=== PATIENT | male | born 1935 | race Caucasian/White ===

== ENCOUNTER → 2016-09-09 11:01 | Outpatient (CLI) | payer MEDICARE ==
[2013-10-28 14:44] VITALS: BMI 30.4
[~2016-09-09 11:01] MED LIST: BAYER CHEWABLE81 MG PO; CORDARONE200 MG PO; K-DUR20 MEQ PO; LASIX20 MG PO; LASIX40 MG PO; LIPITOR80 MG PO; LISINOPRIL10 MG PO; LOPRESSOR25 MG PO; MULTI-DAY VITAM1 TAB PO; NORCO 5/325 TAB1 TA1 PO; PLAVIX75 MG PO; XARELTO15 MG PO; ZETIA10 MG PO
== END | disposition home or self-care (01) ==
LOC: D.US 11:00
DX: R09.89 Other specified symptoms and signs involving the circulatory and respiratory systems (principal); M79.604 Pain in right leg; M79.605 Pain in left leg

== ENCOUNTER 2017-04-19 21:00 | Emergency (ER) | payer MEDICARE ==
[2013-10-28 14:44] VITALS: BMI 30.4
[2017-04-19 22:45] LABS: BASOPHILS 0.2 % (0-2); EOSINOPHILS 5.3 % (0-7); HEMATOCRIT 39.9 % (42.0-54.0); HEMOGLOBIN 13.5 g/dL (13.5-17.5); IMMATURE GRANULOCYTES 0.2 % (0-5); LYMPHOCYTES 34.2 % (15-50); MCH 32.8 pg (26.0-34.0); MCHC 33.8 g/dL (31.0-37.0); MCV 97.1 fL (80.0-100.0); MEAN PLATELET VOLUME 9.7 fL (7.4-10.4); NEUTROPHILS 53.1 % (40-80); RBC 4.11 10x6/uL (4.20-6.10); RDW 13.3 % (11.5-14.5); WBC 5.7 10x3/uL (4.8-10.8)
[2017-04-19 22:46] LABS: PLATELET COUNT 178 10x3/uL (130-400)
[2017-04-19 22:52] LABS: ANION GAP 13.9 mmol/L (8-16); BILIRUBIN - TOTAL 0.39 mg/dL (0.2-1.3); CALCIUM 8.7 mg/dL (8.5-10.1); CARBON DIOXIDE 26.6 mmol/L (21.0-32.0); CREATININE - SERUM 1.2 mg/dL (0.6-1.3); MAGNESIUM - SERUM 2.1 mg/dL (1.8-2.4); POTASSIUM - SERUM 3.5 mmol/L (3.5-5.1); PROTEIN - SERUM 6.6 g/dL (6.4-8.2)
== END 2017-04-20 01:20 | disposition home or self-care (01) ==
LOC: D.ER 21:00
PROVIDERS: Family Medicine
DX: T44.7X1A Poisoning by beta-adrenoreceptor antagonists, accidental (unintentional), initial encounter (principal); Y92.029 Unspecified place in mobile home as the place of occurrence of the external cause; I10 Essential (primary) hypertension; R00.1 Bradycardia, unspecified; I44.7 Left bundle-branch block, unspecified

== ENCOUNTER 2018-05-24 13:49 | Observation (INO) | payer MEDICARE ==
[~2018-05-24] VITALS: Ht 175.3 cm; Wt 90.9 kg
--- NOTE | ~2018-05-24 | HEMODYNAMI ---
PATIENT:DEACON AGUILAR MEDICAL RECORD: [id number] : 39 [address] [id number] ADMISSION DATE: 05/24/18 Generatedon:05/25/201815:41 Patient name: DEACON AGUILAR Patient #: [id number] SSN: : 1935 Date of study: 05/25/2018 Page: Of Hemodynamic Procedure Report Patient Data Patient Demographics Procedure consent was obtained First Name: DEACON Gender: Male Last Name: JEFF : 1935 [facility] Initial: JESS Age: 82 year(s) Patient #: [id number] Race: Unknown Additional ID: [id number] Contact details Address: [address] [place] [address] State: [place] City: [place] Zip code: [address] Past Medical History Allergies: No known allergies Admission Admission Data Admission Date: 05/24/2018 Admission Time: 15:01 Room #: D2129 Lab Results Lab Result Date: 05/25/2018 Lab Result Time: 5:00 Biochemistry Name Units Result Min Max BUN mg/dl 9 --(*---)-- 7 18 Creatinine mg/dl 1 --(--*-)-- 0.6 1.3 CBC Name Units Result Min Max Hematocrit % 42.2 --(*---)-- 42 54 Hemoglobin g/dl 14.7 --(-*--)-- 13.5 17.5 Procedure Procedure Types Cath Procedure Diagnostic Procedure LHC LHC w/Coronaries w/Grafts Sedation Charges Moderate Sedation up to 15 minutes Procedure Description Procedure Date Procedure Date: 05/25/2018 Procedure Start Time: 15:26 Procedure End Time: 15:40 Procedure Staff Name Function Christoph Schofield MD Performing Physician Son Simpson RT Monitor Solange Mc RT Scrub Douglas Peguero RN Nurse Jayson Loyd RN Thermal Cutting Machine Operator Procedure Data Cath Procedure Fluoroscopy Diagnostic fluoroscopy Total fluoroscopy Time: 3.2 time: 3.2 min min Diagnostic fluoroscopy Total fluoroscopy dose: 668 dose: 668 mGy mGy Contrast Material Contrast Material Type Amount (ml) Isovue 300 73 Entry Location Entry Primary Successful Side Size Upsize Upsize Entry Closure Succes sful Closure Location (Fr) 1 (Fr) 2 (Fr) Remarks Device Remarks Femoral Right 5 Fr Vascade artery Closure System Estimated blood loss: 5 ml Diagnostic catheters Device Type Used For End Catheter Placement MULTIPACK Pigtail 5 Fr Procedure catheter MULTIPACK JL 4.0 5Fr Procedure catheter MULTIPACK 3DRC 5Fr Procedure catheter DIAGNOSTIC AR2 MOD 5 Fr Procedure catheter ([id number]) Procedure Complications No complications Procedure Medications Medication Administration Route Dosage 0.9% NaCl I.V. 100 ml/hr Oxygen etCO2 Nasal cannula 2 l/min Heparin Flush Bag added to field 2 bags (1000units/500ml NS) Lidocaine 2% added to field 20 Versed I.V. 2 mg Fentanyl I.V. 100 mcg Versed I.V. 1 mg Fentanyl I.V. 100 mcg Hemodynamics Rest HGB: 14.7 (g/dl) Heart Rate: 56 (bpm) Snapshots Pre Cath Intra NCS Post Cath Vital Signs Time Heart Resp SPO2 etCO2 NIBP (mmHg) Rhythm Pain Sedation Rate (ipm) (%) (mmHg) Status Level (bpm) 15:09:08 60 16 100 35.1 161/72(133) NSR 0 (11) 10(A) , No pain 15:13:28 66 12 96 32.1 131/77(106) NSR 0 (11) 10(A) , No pain 15:17:42 52 12 98 35.8 135/66(107) NSR 0 (11) 10(A) , No pain 15:21:54 64 13 98 35.8 131/71(111) NSR 0 (11) 10(A) , No pain 15:26:04 68 15 98 26.1 132/74(93) NSR 0 (11) 9(A) , No pain 15:30:18 54 12 97 29.1 123/60(99) NSR 0 (11) 9(A) , No pain 15:34:28 65 11 98 36.6 142/65(112) NSR 0 (11) 10(A) , No pain 15:38:42 66 11 98 35.8 140/75(121) NSR 0 (11) 10(A) , No pain Medications Time Medication Route Dose Verified Delivered Reason Notes Eff ectiveness by by 15:07:14 0.9% NaCl I.V. 100 Douglas Douglas Per ml/hr Suhdir Peguero physician RN RN 15:07:25 Oxygen etCO2 2 Douglas Douglas Per Nasal l/min Sudhir Peguero physician cannula RN RN 15:07:36 Heparin Flush added 2 Douglas Douglas used for Bag to bags Lorigan Lorigan procedure (1000units/500ml field RN RN NS) 15:07:48 Lidocaine 2% added 20ml Douglas Douglas for local to vial Lorigan Lorigan anesthetic field RN RN 15:20:30 Versed I.V. 2 mg Douglas Douglas for Lorigan Lorigan sedation RN RN 15:20:38 Fentanyl I.V. 100 Douglas Douglas for mcg Lorigan Lorigan sedation RN RN 15:27:46 Versed I.V. 1 mg Douglas Douglas for Lorigan Lorigan sedation RN RN 15:27:53 Fentanyl I.V. 100 Douglas Douglas for mcg Lorigan Lorigan sedation RN health record technician Log Time Note 14:52:53 Jayson Loyd RN sent for patient. Start room use. 14:52:54 Time tracking: Regular hours (M-F 7:00 - 5:00) 14:52:58 Plan of Care:Hemodynamics will remain stable., Cardiac rhythm will remain stable., Comfort level will be maintained., Respiratory function will remain adequate., Patient/ family verbilizes understanding of procedure., Procedure tolerated without complication., Recovers from procedure without complications.. 14:53:03 Patient received from Med II to [facility] 2 Alert and oriented. Tansferred to table in Supine position. 14:53:04 Warm blankets applied, and claudia hugger turned on for patient comfort. 14:53:05 Correct patient and procedure confirmed by team. 14:53:07 Signed procedure consent form obtained from patient. 14:53:10 ECG and BP/O2 sat monitors applied to patient. 15:07:14 0.9% NaCl 100 ml/hr I.V. was administered by Douglas Peguero RN; Per physician; 15:07:25 Oxygen 2 l/min etCO2 Nasal cannula was administered by Douglas Peguero RN; Per physician; 15:07:36 Heparin Flush Bag (1000units/500ml NS) 2 bags added to field was administered by Douglas Peguero RN; used for procedure; 15:07:48 Lidocaine 2% 20ml vial added to field was administered by Douglas Peguero RN; for local anesthetic; 15:07:54 Vital chart was started 15:09:18 Baseline sample Acquired. 15:09:22 Rhythm: sinus rhythm 15:10:07 Full Disclosure recording started 15:10:30 H&P Date Dictated: 05/24/2018 Within 30 days and on chart.. 15:10:32 Pre-procedure instructions explained to patient. 15:10:32 Pre-op teaching completed and patient verbalized understanding. 15:10:42 Family in waiting room. 15:10:52 Patient NPO since Midnight. 15:11:00 Patient allergic to No known allergies 15:11:02 Is the patient allergic to Iodine/contrast media? No. 15:11:06 Is patient on blood thinner?Yes 15:11:09 Patient diabetic? No. 15:11:11 Previous problem with sedation/anesthesia? No ? 15:11:15 Snore? No 15:11:15 Sleep apnea? No 15:11:16 Deviated septum? No 15:11:16 Opens mouth fully? Yes 15:11:17 Sticks out tongue? Yes 15:11:19 Airway obstruction? No ? 15:11:23 Dentures? Yes in tight 15:11:27 Pre procedure: right dorsailis pedis pulse 2+ Normal; easily identifiable; not easily obliterated 15:11:28 Patient pain scale 0/10 ?. 15:11:33 IV patent on arrival in right forearm with 0.9% NaCl at [facility]. 15:12:17 Lab Result : BUN 9 mg/dl 15:12:17 Lab Result : Creatinine 1 mg/dl 15:12:17 Lab Result : Hemoglobin 14.7 g/dl 15:12:17 Lab Result : Hematocrit 42.2 % 15:12:19 Lab results completed and on chart. 15:12:23 Right groin area was prepped with chlora-prep and draped in sterile fashion 15:12:24 Alarms reviewed by R. N. 15:12:24 Sharps counted by scrub and verified by R.N. 15:12:27 Use device set Femoral Dx 15:12:27 ACIST Syringe (62367) opened to sterile field. 15:12:28 Bag Decanter (2002S) opened to sterile field. 15:12:28 Medline Cath Pack ([id number]) opened to sterile field. 15:12:29 ACIST Hand Control (58081) opened to sterile field. 15:12:30 ACIST Manifold (57063) opened to sterile field. 15:12:30 Tegaderm 4 x 4 (1626W) opened to sterile field. 15:12:33 DIAGNOSTIC WIRE .035 260cm J wire (859171) opened to sterile field. 15:12:34 DIAGNOSTIC Multipack 5Fr catheter set ([id number]) opened to sterile field. 15:12:40 SHEATH 5FR Marianna (HRA679) opened to sterile field. 15:19:30 Zero performed for pressure channel P1 15::47 Physician arrived 15::48 --------ALL STOP TIME OUT------ 15::48 Final Timeout: patient, procedure, and site verified with staff and physician. All members of the team are in agreement. 15:19:50 Right groin site verified by team. 15:19:53 Physical assessment completed. ASA score P 2 - A patient with mild systemic disease as per Christoph Schofield MD. 15:19:56 Sedation plan: IV Moderate Sedation Medication:Versed, Fentanyl 15:20:30 Versed 2 mg I.V. was administered by Douglas Peguero RN; for sedation; 15::38 Fentanyl 100 mcg I.V. was administered by Douglas Peguero RN; for sedation; 15::38 Procedure started. 15:26:40 Local anesthetic to right femoral artery with Lidocaine 2% by Christoph Schofield MD.INITIAL ACCESS ONLY 15::47 A 5 Fr sheath was inserted into the Right Femoral artery 15::34 A MULTIPACK Pigtail 5 Fr catheter was advanced over the wire and used for Procedure. 15:27:46 Versed 1 mg I.V. was administered by Douglas Peguero RN; for sedation; 15::49 LV gram done using EDOUARD 15::53 Fentanyl 100 mcg I.V. was administered by Douglas Peguero RN; for sedation; 15::18 Injector settings: Ml/sec: 10, Volume: 20, 15:28:19 LV hemodynamics recorded. 15:28:24 EF : 55 % 15:28:26 Catheter exchanged over wire. 15:28:30 A MULTIPACK JL 4.0 5Fr catheter was advanced over the wire and used for Procedure. 15:29:00 LCA angiography performed. 15:29:31 Catheter exchanged over wire. 15:29:37 A MULTIPACK 3DRC 5Fr catheter was advanced over the wire and used for Procedure. 15:30:33 SALOMON to LAD angiography performed. 15:30:56 RCA angiography performed. 15:31:49 Catheter exchanged over wire. 15:31:53 A DIAGNOSTIC AR2 MOD 5 Fr catheter ([id number]) was advanced over the wire and used for Procedure. 15:32:33 SVG to Diag angiography performed. 15:32:59 SVG to Diag, Ramus, CX angiography performed. 15:33:58 Catheter removed. 15:35:27 VASCADE 5Fr ([id number]) opened to sterile field. 15:36:39 Sheath removed intact; hemostasis achieved with Vascade Closure System to the Right Femoral artery. 15:36:41 Procedure ended.(Physican Out) 15:37:06 Fluoroscopy time 03.20 minutes. 15:37:11 Fluoroscopy dose: 668 mGy 15:37:11 Flurop Dose total: 668 15:37:17 Contrast amount:Isovue 300 73ml. 15:37:18 Sharps counted by scrub and verified by R.N. 15:37:19 Insertion/operative site no bleeding no hematoma. 15:37:22 Post-op/insertion site Right Femoral artery dressed using a 4 x 4 and Tegaderm. 15:37:26 Post right femoral artery:stable, soft, clean and dry 15:37:27 Post Procedure Pulses reassessed and unchanged 15:37:30 Post-procedure physical assessment completed. ASA score P 2 - A patient with mild systemic disease as per Christoph Schofield MD. 15:37:31 Post procedure rhythm: unchanged. 15:37:34 Estimated blood loss: 5 ml 15:37:40 Post procedure instruction explained to patient.Patient verbalizes understanding. 15:37:40 Patient needs reinforcement of post procedure teaching. 15:38:14 Procedure type changed to Cath procedure, Diagnostic procedure, LHC, LHC w/Coronaries w/Grafts, Sedation Charges, Moderate Sedation up to 15 minutes 15:39:55 Procedure and supply charges have been captured, reviewed, submitted and are correct. 15:39:57 Procedure Complication : No complications 15:39:59 Vital chart was stopped 15:39:59 See physician's report for complete and final results. 15:40:09 Report given to PCU. 15:40:12 Patient transfered to PCU with Stretcher. 15:40:13 Procedure ended. 15:40:13 Full Disclosure recording stopped 15:40:17 End room use (Document Last) Device Usage Item Name Manufacture Quantity Catalog Number Hospital Part Current Min imal Lot# / Charge Number Stock Stock Serial# Code ACIST Syringe Acist 1 97019 887359 262710 723621 20 (04171) Potential Systems Modern Boutique Bag Decanter Microtek 1 2001S 274982 96229 373970 5 () Medical Inc. Medline Cath Medline 1 [id number] 340608 09556 517303 5 Pack ([id number]) ACIST Hand Acist 1 95515 206998 374709 907237 5 Control Medical (55864) Systems Inc ACIST Acist 1 04681 831383 534973 690461 5 Manifold Medical (55362) Systems Inc Tegaderm 4 x 3M 1 1626W 120628 043839 187426 5 4 (1626W) DIAGNOSTIC St Jake 1 778257 876054 452366 238891 30 WIRE .035 260cm J wire (612760) DIAGNOSTIC Cardinal 1 [id number] 306545 78975 223746 30 Multipack 5Fr Health catheter set (GN4816) SHEATH 5FR Terumo 1 NNY561 161537 460182 257527 40 Marianna (ZNX488) MULTIPACK Cardinal 1 122125 5 Pigtail 5 Fr Health catheter MULTIPACK JL Cardinal 1 294118 5 4.0 5Fr Health catheter MULTIPACK Cardinal 1 186387 5 3DRC 5Fr Health catheter DIAGNOSTIC Cardinal 1 [id number] 187540 337548 698714 20 AR2 MOD 5 Fr Health catheter ([id number]) VASCADE 5Fr Cardiva 1 [id number] 050498 60122 215186 10 ([id number]) Potential, Inc. Signature Audit Leland Stage Time Signature Unsigned Intra-Procedure 05/25/2018 Son Simpson 3:41:39 PM RT(R) Signatures Monitor : Son Simpson RT Signature : Date : Time : [place] [id number] [place] [address]
--- NOTE | ~2018-05-24 | MORECARE ---
CASE MANAGEMENT DISCHARGE SUMMARY PATIENT: DEACON AGUILAR UNIT: [id number] ADM DATE: 05/24/18 AGE: 82 : 37 SEX: M ROOM/BED: D.1107 AUTHOR: ASHISH HERNANDES PHYSICIAN: REFERRING PHYSICIAN: ORTIZ BYERS MD DATE OF SERVICE: 05/25/18 Discharge Plan Patient Name: DEACON AGUILAR Facility[facility]:[place] : 1935 Planned Disposition: Home Anticipated Discharge Date: 06/21/18 Discharge Date: Expected LOS: 28 Initial Reviewer: [email or web address] Initial Review Date: 05/25/2018 Generated: 05/25/18 6:09 pm Coverage Notice Reviewer: [email or web address] Anjana Lynch Notice Issued Date-Time: 05/25/2018 14:35 Notice Type: Medicare Outpatient Observation Notice Notice Delivered To: Patient Relationship to Patient: Self Compression Molding Machine Setter Name: Delivery Method: HAND - Hand Delivered Melodie Days: Prior Verbal Notification: Recipient Understood Notice: Recipient Signature: Med Rec Note Co-signed by Attending: Coverage Notice Comment: I ATTEMPTED TO DELIVER THE RODRIGUEZ TO THE PATIENT. HE DID NOT WANT TO LISTEN, HE SAID IT DIDN'T MATTER BECAUSE HE WAS GETTING READY TO WALK OUT OF THIS PLACE. HE HAS HIS TELEMETRY OFF, PULLED HIS IV OUT. HE STATED THAT HE IS NOT GETTING THE SERVICES THAT HE IS HERE IN NEED OF. I FOUND TANIA TO TALK WITH HER ABOUT THIS. WILL FILE RODRIGUEZ FORM ATTEMPT IN CHART. Patient Name: DEACON AGUILAR Page [phone] at 1710 All edits/amendments must be made on the electronic document DICTATION DATE: 05/25/181708 HAND NAILER: CALVIN 05/25/181708 RPT#: [id number] DC DATE: STATUS: ADM IN [facility] [address] [place] [address] END OF REPORT
--- NOTE | ~2018-05-24 | DS ---
PATIENT:DEACON HERNANDEZ :[birth year] MEDICAL RECORD: [id number] DISCHARGE SUMMARY ADMISSION DATE: 05/24/18 DISCHARGE DATE: 05/25/18 DISCHARGE DIAGNOSES: 1. Angina. 2. Coronary artery disease. 3. Previous coronary bypass graft surgery. HOSPITAL COURSE: Mrs. Hernandez presents with anginal symptomatology; however, cardiac catheterization reveals wide patency of all his grafts. He does have diffuse disease of the vessels after the grafts. He was placed on Imdur 30 mg b.i.d. with no further angina. He will follow up with [facility] in 1 month. TRANSINT:[id number] Voice Confirmation ID: [id number] DOCUMENT ID: [id number] ORTIZ BYERS MD at 1059 CC: [id number] DICTATION DATE: 05/25/18 1543 BUILDING CERTIFIER: 05/26/18 0121 DIS IN 05/25/18 [facility] [address] [place] [address]
--- NOTE | ~2018-05-24 | MORECARE ---
CASE MANAGEMENT DISCHARGE SUMMARY PATIENT: DEACON AGUILAR UNIT: [id number] ADM DATE: 05/24/18 AGE: 82 : 37 SEX: M ROOM/BED: D.0 AUTHOR: ASHISH HERNANDES PHYSICIAN: REFERRING PHYSICIAN: ORTIZ BYERS MD DATE OF SERVICE: 05/25/18 Discharge Plan Patient Name: DEACON AGUILAR Facility: [facility]:[place] : 1935 Planned Disposition: Home Anticipated Discharge Date: 06/21/18 Discharge Date: Expected LOS: 28 Initial Reviewer: [email or web address] Initial Review Date: 05/25/2018 Generated: 05/25/18 6:19 pm Coverage Notice Reviewer: [email or web address] Anjana Lynch Notice Issued Date-Time: 05/25/2018 14:35 Notice Type: Medicare Outpatient Observation Notice Notice Delivered To: Patient Relationship to Patient: Self Maintenance Welder Name: Delivery Method: HAND - Hand Delivered Melodie Days: Prior Verbal Notification: Recipient Understood Notice: Recipient Signature: Med Rec Note Co-signed by Attending: Coverage Notice Comment: I ATTEMPTED TO DELIVER THE RODRIGUEZ TO THE PATIENT. HE DID NOT WANT TO LISTEN, HE SAID IT DIDN'T MATTER BECAUSE HE WAS GETTING READY TO WALK OUT OF THIS PLACE. HE HAS HIS TELEMETRY OFF, PULLED HIS IV OUT. HE STATED THAT HE IS NOT GETTING THE SERVICES THAT HE IS HERE IN NEED OF. I FOUND TANIA TO TALK WITH HER ABOUT THIS. WILL FILE RODRIGUEZ FORM ATTEMPT IN CHART. Patient Name: DEACON AGUILAR Page 50275 at 1720 All edits/amendments must be made on the electronic document DICTATION DATE: 05/25/181718 CASTING MACHINE CONTROL BOARD OPERATOR: CALVIN 05/25/181718 RPT#: [id number] DC DATE: STATUS: ADM IN [facility] [address] [place] [address] END OF REPORT
--- NOTE | ~2018-05-24 | HP ---
PATIENT: DEACON HERNANDEZ MEDICAL RECORD: [id number] ACCOUNT: [id number] LOCATION:.[facility].2129 : [birth year] ADMISSION DATE: 05/24/18 PCP: COLT NORRIS MD HISTORY AND PHYSICAL EXAMINATION DIAGNOSES: 1. Unstable angina. 2. Coronary artery disease. 3. Previous coronary bypass graft surgery. 4. Previous PTCA stent. 5. Paroxysmal atrial fibrillation, controlled in sinus rhythm, on amiodarone. 6. Hyperlipidemia. 7. Hypertension. HISTORY OF PRESENT ILLNESS: Mr. Hernandez presents with 6 weeks of increasing chest pain markedly increasing over the past 24 hours, multiple episodes of severe chest pain today, just like that of his previous angina, status post coronary bypass graft surgery 4 years ago, PTCA stent prior to that. PHYSICAL EXAMINATION: GENERAL APPEARANCE: Well-nourished, well-developed, appears stated age. Level of distress, comfortable. PSYCHIATRIC: Mental status, alert, normal affect. Orientation, oriented to time, place and person. EYES: Lids and conjunctiva, noninjected. No discharge, no pallor. ENT: Lips, teeth, gums, normal dentition. Oropharynx, no cyanosis, no pallor. NECK: Carotid arteries, bilateral normal upstroke, no bruits, no thrills. JUGULAR VEINS: No jugular venous pressure or distention. CERVICAL LYMPH NODES: Nontender, nonenlarged. THYROID: Not enlarged. Nontender. No nodules. LUNGS: Respiratory effort, unlabored. CHEST: Normal curvature. No thoracic deformity. No chest wall tenderness. Percussion, resonant. Auscultation, clear. No wheezes, no rales, no rhonchi. CARDIOVASCULAR: Precordial exam, nondisplaced. No heaves or pericardial thrills. Rate and rhythm, regular. Heart sounds, normal S1, normal S2. No S3, no gallop, no rub. Systolic murmur, not heard. Diastolic murmur, not heard. EXTREMITIES: No cyanosis, no edema. Peripheral pulses, full and equal in all extremities, except as noted. No bruits appreciated. ABDOMEN: Soft, nondistended. Normal aorta. No bruit. Nontender. No masses. Liver, nontender, no hepatomegaly. Spleen, nontender, no splenomegaly. MUSCULOSKELETAL: No joint tenderness. No joint swelling. No erythema. NEUROLOGICAL: Normal gait, normal strength, normal tone. SKIN: Warm and dry. REVIEW OF SYSTEMS: The patient reports easy bruising but reports no swollen glands. The patient reports no fever, no night sweats, no significant weight gain, no significant weight loss. No significant exercise tolerance. The patient reports no dry eyes, no irritation, no vision change. Patient reports no difficulty hearing and no ear pain. Patient reports no frequent nose bleeds or nose and sinus problems. Patient reports on arm pain on exertion. No shortness of breath while lying down. No history of heart murmur. Patient reports no cough, no wheezing or coughing up blood. Patient reports no abdominal pain, no vomiting. Normal appetite. No diarrhea and not vomiting blood. No nausea and no constipation. Patient reports no incontinence. No difficulty urinating. No hematuria. No increased frequency. Patient reports HISTORY AND PHYSICAL [id number] DEACON HERNANDEZ no muscle aches. No weakness, no arthralgias, no back pain. No swelling of the extremities. Patient reports no abnormal mole, no jaundice, no rashes. Reports no loss of consciousness. No weakness and no numbness. No seizures, dizziness, or headaches. The patient reports no depression, no sleep disturbance, feeling safe in a relationship and no alcohol abuse. Patient reports on fatigue. Reports no runny nose or sinus pressure. No itching, no hives, and no frequent sneezing. OVERALL IMPRESSION: Unstable anginal symptomatology. We will load him with Plavix, proceed with coronary angiography. Further care depends upon findings of the angiography. TRANSINT:[id number] Voice Confirmation ID: [id number] DOCUMENT ID: [id number] ORTIZ BYERS MD at 1059 CC: [id number] DICTATION DATE: 05/24/18 1503 DIFFERENTIAL REPAIRER: 05/24/18 1549 DIS IN 05/25/18 [place] [id number] [place] [address]
--- NOTE | ~2018-05-24 | OP ---
PATIENT NAME: DEACON AGUILAR MEDICAL RECORD: [id number] :39 LOCATION:D.M2 D.2129 ADMISSION DATE:05/24/18 SURGEON: ORTIZ BYERS MD DATE OF OPERATION: 05/25/2018 PROCEDURES: 1. Left heart catheterization. 2. Selective coronary angiography. 3. Vein graft angiography. 4. SALOMON angiography. 5. Left ventriculogram. INDICATION: Chest pain compatible with angina. PROCEDURE IN DETAIL: After informed consent was obtained and after a detailed description of the risks, benefits as well as alternative therapies, the patient elected to proceed with angiogram and heart catheterization. The right femoral area was prepped and draped in normal sterile fashion. Right femoral artery was cannulated via modified Seldinger technique with placement of 6-Emirati sheath. All catheters exchanged through this sheath. FINDINGS: The left ventriculogram was performed in standard 30-degree EDOUARD view, reveals good cardiac wall motion throughout all segments. Overall ejection fraction estimated 60%. SELECTIVE CORONARY ANGIOGRAPHY: 1. Left main is with no significant angiographic disease. 2. Left anterior descending is totally occluded. 3. Left circumflex has 80+ percent stenosis proximally. 4. Right coronary is small, nondominant with diffuse disease. 5. The SALOMON to the LAD is patent. The distal LAD is diffusely diseased, but patent. 6. Vein graft in a skipped fashion. The diagonal OM1 and OM2 is patent. The distal OMs are diffusely diseased, but patent. OVERALL IMPRESSION: Wide patency of all grafts with diffuse disease distally. Medical management of the coronary artery disease at this point. TRANSINT:[id number] Voice Confirmation ID: [id number] DOCUMENT ID: [id number] ORTIZ BYERS MD at 1059 CC: [id number] DICTATION DATE: 05/25/18 1548 FURNITURE LUMBER PRODUCTION WORKER: 05/25/18 1559 DIS IN 05/25/18 [place] [id number] [place] [id number]
[2018-05-24 14:21] VITALS: BP 153/73
[2018-05-24 14:25] LABS: BASOPHILS 0.2 % (0-2); EOSINOPHILS 1.7 % (0-7); HEMATOCRIT 42.2 % (42.0-54.0); HEMOGLOBIN 14.7 g/dL (13.5-17.5); IMMATURE GRANULOCYTES 0.2 % (0-5); LYMPHOCYTES 34.3 % (15-50); MCH 32.8 pg (26.0-34.0); MCHC 34.8 g/dL (31.0-37.0); MCV 94.2 fL (80.0-100.0); MONOCYTES 5.7 % (2-11); NEUTROPHILS 57.9 % (40-80); RBC 4.48 10x6/uL (4.20-6.10); RDW 13.2 % (11.5-14.5); WBC 5.9 10x3/uL (4.8-10.8)
[2018-05-24 14:38] LABS: INR 0.96 (0.85-1.17); PROTIME 12.4 SECONDS (11.6-15.0)
[2018-05-24 14:40] LABS: ALBUMIN 3.4 g/dL (3.4-5.0); ALKALINE PHOSPHATASE 86 U/L (46-116); ALT (SGPT) 33 U/L (10-68); BILIRUBIN - TOTAL 0.52 mg/dL (0.2-1.3); CALC OSMOLALITY 279 mosm/kg (275-300); CALCIUM 8.6 mg/dL (8.5-10.1); CARBON DIOXIDE 28.6 mmol/L (21.0-32.0); CHLORIDE - SERUM 106 mmol/L (98-107); GLUCOSE 127 mg/dL (74-106); POTASSIUM - SERUM 3.8 mmol/L (3.5-5.1); PROTEIN - SERUM 6.9 g/dL (6.4-8.2); SODIUM 140 mmol/L (136-145); UREA NITROGEN 9 mg/dL (7-18); eGFR NON AFRICAN AMERICAN 76 mL/min (90-120)
[2018-05-24 14:42] LABS: PLATELET COUNT 142 10x3/uL (130-400)
[2018-05-24 14:58] LABS: CKMB 1.1 U/L (0.0-3.6); CREATINE KINASE 77 UL (21-232); MAGNESIUM - SERUM 2.1 mg/dL (1.8-2.4); TROPONIN-I 0.019 ng/mL (0.000-0.060)
[2018-05-24 19:00] VITALS: BP 131/52
[2018-05-24 19:21] LABS: CREATINE KINASE 80 UL (21-232)
[2018-05-24 19:23] LABS: TROPONIN-I < 0.017 ng/mL (0.000-0.060)
[2018-05-25] VITALS: BP 138/56
[2018-05-25 01:50] LABS: CKMB 0.7 U/L (0.0-3.6); CREATINE KINASE 63 UL (21-232); TROPONIN-I 0.018 ng/mL (0.000-0.060)
[2018-05-25 02:55] VITALS: BP 131/52; Ht 175.3 cm; Wt 90.9 kg
[2018-05-25 04:00] VITALS: BP 152/59
[2018-05-25 07:05] LABS: BASOPHILS 0.2 % (0-2); EOSINOPHILS 3.9 % (0-7); HEMATOCRIT 41.9 % (42.0-54.0); HEMOGLOBIN 14.6 g/dL (13.5-17.5); IMMATURE GRANULOCYTES 0.2 % (0-5); MCH 32.7 pg (26.0-34.0); MCHC 34.8 g/dL (31.0-37.0); MCV 93.7 fL (80.0-100.0); MEAN PLATELET VOLUME 10.5 fL (7.4-10.4); MONOCYTES 6.8 % (2-11); NEUTROPHILS 49.9 % (40-80); PLATELET COUNT 137 10x3/uL (130-400); RBC 4.47 10x6/uL (4.20-6.10); RDW 13.4 % (11.5-14.5); WBC 5.2 10x3/uL (4.8-10.8)
[2018-05-25 07:41] LABS: ALBUMIN 3.1 g/dL (3.4-5.0); ALKALINE PHOSPHATASE 74 U/L (46-116); ALT (SGPT) 29 U/L (10-68); BILIRUBIN - TOTAL 0.58 mg/dL (0.2-1.3); CALC OSMOLALITY 279 mosm/kg (275-300); CALCIUM 8.7 mg/dL (8.5-10.1); CARBON DIOXIDE 26.2 mmol/L (21.0-32.0); CHLORIDE - SERUM 107 mmol/L (98-107); CREATINE KINASE 78 UL (21-232); CREATININE - SERUM 0.8 mg/dL (0.6-1.3); GLUCOSE 100 mg/dL (74-106); POTASSIUM - SERUM 4.1 mmol/L (3.5-5.1); PROTEIN - SERUM 6.6 g/dL (6.4-8.2); SODIUM 141 mmol/L (136-145); TROPONIN-I 0.028 ng/mL (0.000-0.060); UREA NITROGEN 11 mg/dL (7-18); eGFR NON AFRICAN AMERICAN > 90 mL/min (90-120)
[2018-05-25 08:05] VITALS: BP 117/63
[2018-05-25 11:59] VITALS: BP 167/55
[2018-05-25 14:53] VITALS: BP 189/86
[2018-05-25] MEDS ORDERED: ISOSORBIDE MONO30 M1 PO (16:49)
== END 2018-05-25 18:24 | disposition home or self-care (01) ==
LOC: D.ER 13:49 → D.EDHOLD 15:01 → D.M2 15:01 → OBSVTIME 15:01 → D.M2 17:52
PROVIDERS: Family Medicine
DX: I25.110 Atherosclerotic heart disease of native coronary artery with unstable angina pectoris (principal); Z95.1 Presence of aortocoronary bypass graft; Z95.5 Presence of coronary angioplasty implant and graft; I48.0 Paroxysmal atrial fibrillation; E78.5 Hyperlipidemia, unspecified; I10 Essential (primary) hypertension